=== PATIENT | male | born 1960 | race Caucasian/White ===

== ENCOUNTER → 2018-12-02 09:48 | Outpatient (CLI) | payer OTHER, SELFPAY ==
[2018-12-02 10:23] LABS: Add Manual Diff / Slide Review NO; Basophils Absolute Auto 0 /uL (0-100); Basophils Percent Auto 0.2 % (0-2); Eosinophils Absolute Auto 100 /uL (0-450); Eosinophils Percent Auto 0.4 % (2-4); Hemoglobin 14.5 g/dL (13.5-17.5); Lymphocytes Absolute Auto 1400 /uL (1100-4500); Lymphocytes Percent Auto 10.6 % (25-40); Mean Corpuscular HGB Conc 33.7 % (30-36); Mean Corpuscular Hemoglobin 32.8 PG (26-34); Mean Corpuscular Volume 97.4 fL (80-100); Monocytes Absolute Auto 1400 /uL (0-900); Neutrophils Absolute Auto 10100 /uL (1500-7000); Neutrophils Percent Auto 77.8 % (50-75); Platelet Count 234 X10^3/uL (150-400); Red Blood Cell Count 4.41 X10^6/uL (4.5-5.9); Red Cell Distribution Width 13.5 % (11.6-14.8); White Blood Cell Count 12.9 X10^3/uL (4.5-11.0)
[2018-12-02 11:08] LABS: Alanine Aminotransferase 30 IU/L (21-72); Albumin 4.1 g/dL (3.5-5.0); Albumin Globulin Ratio 1.1 (1.0-2.8); Alkaline Phosphatase 67 U/L (38-126); Aspartate Aminotransferase 30 IU/L (17-59); Bilirubin Total 1.2 mg/dL (0.2-1.3); Blood Urea Nitrogen 12 mg/dL (9-20); Carbon Dioxide 28 mmol/L (22-32); Chloride 102 mmol/L (98-107); Estimated Glomerular Filt Rate > 60.0 mL/min (>60); Globulin 3.7 g/dL (1.7-4.1); Glucose 125 mg/dL (70-100); HEMOLYSIS < 15 (0-50); Lipase 78 U/L (23-300); Potassium 4.1 mmol/L (3.4-5.1); Sodium 139 mmol/L (137-145); Total Protein 7.8 g/dL (6.3-8.2)
--- NOTE | 2018-12-02 12:21 | DI.CT.S_ITS ---
PROCEDURE: CT ABDOMEN PELVIS W CON INDICATIONS: abdominal pain TECHNIQUE: After the administration of oral and intravenous contrast, 5 mm thick sections acquired from the diaphragms to the symphysis. 5 mm thick coronal and sagittal reformats were performed. For radiation dose reduction, the following was used: automated exposure control, adjustment of mA and/or kV according to patient size. COMPARISON: None. FINDINGS: Image quality: Excellent. ABDOMEN: Lung bases: Lung bases are clear. Heart size is normal. Solid organs: Liver is normal in size and enhancement. Gallbladder is normal. Biliary system is non-dilated. Pancreas enhances normally. Spleen is normal in size and enhancement. No adrenal nodules. Kidneys are normal in size and enhancement, without hydronephrosis. Peritoneum and bowel: There are scattered colonic diverticula. There is thickening of sigmoid colon and pericolonic stranding consistent with acute diverticulitis. There is a 2.7 x 4.5 cm air-fluid level left lateral of the sigmoid colon, consistent with an abscess. Stomach, small bowel, and colon loops are normal in caliber. No free fluid or air. Nodes and vessels: No retroperitoneal or mesenteric adenopathy. Aorta and inferior vena cava are normal in caliber. Miscellaneous: No ventral hernias. PELVIS: Genitourinary: Bladder wall thickness is normal. Miscellaneous: No inguinal hernias or adenopathy. Bones: No suspicious bony lesions. No vertebral body compression fractures. IMPRESSION: 1. Acute diverticulitis of the sigmoid colon. There is a 2.7 x 4.5 cm air fluid collection adjacent to the sigmoid colon consistent with an abscess. The result was discussed with Sandy Melvin,PAC are to dictation. Dictated by: Yazmin Ayoub M.D. on 12/02/2018 at 13:16 Approved by: Sushil Cooney M.D. on 12/02/2018 at 14:19
== END ==
PROVIDERS: Visit Provider Physician Assistant
DX: R10.9 Unspecified abdominal pain (principal); R19.7 Diarrhea, unspecified
CPT/HCPCS: 36415; 74177; 80053; 83690; 85025; Q9967

== ENCOUNTER 2018-12-02 13:48 | Inpatient (IN) | payer OTHER, SELFPAY ==
[2018-12-02] VITALS (9 sets, daily range): BP systolic 116–165; BP diastolic 84–100; PULSE 60–81; RESP 12–18; TEMP 36.9–37.3; O2SAT 97–100; BMI 26.7
--- NOTE | 2018-12-02 13:58 | ED.ABDPAIN ---
HPI - Abdominal Pain <Erin Husain PA-C - Last Filed: 12/02/18 21:08> General Chief Complaint: Abdominal Pain Stated Complaint: abdominal pain Time Seen by Provider: 12/02/18 13:58 Source: patient Mode of arrival: ambulatory Limitations: no limitations History of Present Illness HPI narrative: This healthy 50-year-old male was called by walk-in clinic to return to ED reportedly due to perforated/abscessed diverticulum. He was seen there earlier today and lab work was done as well. He states the the pain throughout the lower abdomen started on Friday and he had some nausea and dry heaves as well. He states he did have some loose stools, thought this might be IBS as he has had similar symptoms in the past that responded to probiotics. He states that over the last few days, he has had increased pain though not acutely changed today. He states pain is worse at nighttime somewhat, but it is constant. Also worse with a full bladder. He has taken a Tylenol or Advil p.m. at night which has helped. He has had sweats, has not taken temperature. He has persistent nausea but has not had vomiting. He states he has had less appetite, did have dinner last night and has been drinking fluids. Decrease in bowel movement volume over the last few days. He denies hematuria or urinary symptoms. He denies chest pain, dyspnea, pain or swelling extremities or other new symptoms on systems review Related Data Home Medications Medication Instructions Recorded Confirmed No Known Home Medications 12/02/18 12/02/18 Allergies Allergy/AdvReac Type Severity Reaction Status Date / Time amoxicillin [From Augmentin] Allergy Severe GI Upset Verified 12/02/18 09:36 clavulanic acid Allergy Severe GI Upset Verified 12/02/18 09:36 [From Augmentin] gluten Allergy Unknown Verified 12/02/18 09:36 Review of Systems <Erin Husain PA-C - Last Filed: 12/02/18 21:08> Review of Systems ROS Unobtainable: All systems reviewed & are unremarkable except as noted in HPI and below PFSH <Erin Husain PA-C - Last Filed: 12/02/18 21:08> Medical History No chronic problems (Chronic) Surgical History History of arthroscopic knee surgery (Resolved) History of arthroscopic surgery of shoulder (Resolved) Social History Smoking Status: Never smoker Social History household members: significant other Smoking Status: Never smoker alcohol intake: current Exam <Erin Husain PA-C - Last Filed: 12/02/18 21:08> Narrative Exam Narrative: GENERAL APPEARANCE: Patient sitting comfortably, in no distress. HEENT: PERRL, EOMI, no scleral icterus, conjunctiva pink, normal oropharynx NECK: Supple, no masses LUNGS: Clear to auscultation bilaterally. HEART: Rate and rhythm regular, normal S1 and S2, no S3 or S4. ABDOMEN: Soft, nondistended, bowel sounds present x 4 quadrants, no masses palpable, no hepatosplenomegaly. Tender throughout the lower quadrants, more on the left side EXTREMITIES: No edema, no cyanosis DERMATOLOGIC: No jaundice or exanthem NEUROLOGIC: Alert and oriented with normal speech and coordination Initial Vital Signs Initial Vital Signs: Vital Signs Temperature 98.5 F 12/02/18 13:49 Pulse Rate 76 12/02/18 13:49 Respiratory Rate 18 12/02/18 13:49 Blood Pressure 165/100 H 12/02/18 13:49 <Sofi East DO - Last Filed: 12/03/18 08:16> Initial Vital Signs Initial Vital Signs: Vital Signs Temperature 98.5 F 12/02/18 13:49 Pulse Rate 76 12/02/18 13:49 Respiratory Rate 18 12/02/18 13:49 Blood Pressure 165/100 H 12/02/18 13:49 Course <CELESTINA Gregg Last Filed: 12/02/18 21:08> Additional Information: I spoke with Dr. Chilel, first front ventilator for surgery, who advised abx and admit to medicine with surgical consult as likely can be drained by interventional radiologist. Medicine felt that this admission was more appropriate for surgery. Dr. Chilel accepts patient for admission. He is feeling significantly improved in terms of pain and is stable at the time of transfer. Orders Ordered: ED Orders 12/03/18 06:15 Complete Blood Count AUTO DIFF DAILY Hydromorphone HCl (Dilaudid) 0.5 mg IV Q4H PRN PRN Reason: Pain, Severe (7-10) Last Admin: 12/02/18 23:05 Dose: 0.5 mg Levofloxacin (Levaquin) 750 mg in 150 mls @ 100 mls/hr IV Q24H FRANKI Metronidazole (Flagyl) 500 mg in 100 mls @ 100 mls/hr IV Q6H RFANKI Last Admin: 12/03/18 04:04 Dose: 100 mls/hr Infusion: 12/02/18 23:03 Dose: 0 mls/hr Admin: 12/02/18 21:31 Dose: 100 mls/hr Sodium Chloride (Normal Saline 0.9%) 1,000 mls @ 84 mls/hr IV CONT FRANKI Last Admin: 12/03/18 04:04 Dose: 84 mls/hr Infusion: 12/03/18 04:04 Dose: 84 mls/hr Admin: 12/02/18 16:28 Dose: 84 mls/hr Metoclopramide HCl (Reglan) 10 mg IV Q6HR PRN PRN Reason: Nausea And Vomiting Discontinued Medications Sodium Chloride (Normal Saline 0.9%) 1,000 mls @ 1,000 mls/hr IV BOLUS ONE Stop: 12/02/18 14:58 Last Infusion: 12/02/18 15:56 Dose: 0 mls/hr Admin: 12/02/18 14:34 Dose: 1,000 mls/hr Levofloxacin (Levaquin) 750 mg in 150 mls @ 100 mls/hr IV NOW ONE Stop: 12/02/18 15:56 Last Infusion: 12/02/18 16:25 Dose: 0 mls/hr Admin: 12/02/18 14:50 Dose: 100 mls/hr Sodium Chloride (Normal Saline 0.9%) 1,000 mls @ 1,000 mls/hr IV BOLUS ONE Stop: 12/02/18 15:26 Last Admin: 12/02/18 14:34 Dose: Not Given Metronidazole (Flagyl) 500 mg in 100 mls @ 100 mls/hr IV NOW ONE Stop: 12/02/18 15:32 Last Infusion: 12/02/18 15:56 Dose: 0 mls/hr Admin: 12/02/18 14:50 Dose: 100 mls/hr Ketorolac Tromethamine (Toradol) 30 mg IV NOW ONE Stop: 12/02/18 14:28 Last Admin: 12/02/18 14:33 Dose: 30 mg Ondansetron HCl (Zofran) 4 mg IV NOW ONE Stop: 12/02/18 14:28 Last Admin: 12/02/18 14:33 Dose: 4 mg Vital Signs - 8 hr 12/03/18 04:15 Temperature 98.3 F Pulse Rate 47 L Respiratory Rate 17 Blood Pressure 124/83 Pulse Oximetry 99 <Sofi East, DO - Last Filed: 12/03/18 08:16> Orders Ordered: ED Orders 12/03/18 06:15 Complete Blood Count AUTO DIFF DAILY Hydromorphone HCl (Dilaudid) 0.5 mg IV Q4H PRN PRN Reason: Pain, Severe (7-10) Last Admin: 12/02/18 23:05 Dose: 0.5 mg Levofloxacin (Levaquin) 750 mg in 150 mls @ 100 mls/hr IV Q24H FRANKI Metronidazole (Flagyl) 500 mg in 100 mls @ 100 mls/hr IV Q6H FRANKI Last Admin: 12/03/18 04:04 Dose: 100 mls/hr Infusion: 12/02/18 23:03 Dose: 0 mls/hr Admin: 12/02/18 21:31 Dose: 100 mls/hr Sodium Chloride (Normal Saline 0.9%) 1,000 mls @ 84 mls/hr IV CONT FRANKI Last Admin: 12/03/18 04:04 Dose: 84 mls/hr Infusion: 12/03/18 04:04 Dose: 84 mls/hr Admin: 12/02/18 16:28 Dose: 84 mls/hr Metoclopramide HCl (Reglan) 10 mg IV Q6HR PRN PRN Reason: Nausea And Vomiting Discontinued Medications Sodium Chloride (Normal Saline 0.9%) 1,000 mls @ 1,000 mls/hr IV BOLUS ONE Stop: 12/02/18 14:58 Last Infusion: 12/02/18 15:56 Dose: 0 mls/hr Admin: 12/02/18 14:34 Dose: 1,000 mls/hr Levofloxacin (Levaquin) 750 mg in 150 mls @ 100 mls/hr IV NOW ONE Stop: 12/02/18 15:56 Last Infusion: 12/02/18 16:25 Dose: 0 mls/hr Admin: 12/02/18 14:50 Dose: 100 mls/hr Sodium Chloride (Normal Saline 0.9%) 1,000 mls @ 1,000 mls/hr IV BOLUS ONE Stop: 12/02/18 15:26 Last Admin: 12/02/18 14:34 Dose: Not Given Metronidazole (Flagyl) 500 mg in 100 mls @ 100 mls/hr IV NOW ONE Stop: 12/02/18 15:32 Last Infusion: 12/02/18 15:56 Dose: 0 mls/hr Admin: 12/02/18 14:50 Dose: 100 mls/hr Ketorolac Tromethamine (Toradol) 30 mg IV NOW ONE Stop: 12/02/18 14:28 Last Admin: 12/02/18 14:33 Dose: 30 mg Ondansetron HCl (Zofran) 4 mg IV NOW ONE Stop: 12/02/18 14:28 Last Admin: 12/02/18 14:33 Dose: 4 mg Vital Signs - 8 hr 12/03/18 04:15 Temperature 98.3 F Pulse Rate 47 L Respiratory Rate 17 Blood Pressure 124/83 Pulse Oximetry 99 MDM - Abdominal Pain <Erin Husain PA-C - Last Filed: 12/02/18 21:08> Lab Data Attestation: I reviewed the patient's lab results. Result diagrams: 12/02/18 14:15 12/02/18 14:15 Lab Results 12/02/18 12/02/18 12/02/18 Range/Units 14:15 14:15 14:15 WBC 12.9 H (4.5-11.0) X10^3/uL RBC 4.45 L (4.5-5.9) X10^6/uL Hgb 14.4 (13.5-17.5) g/dL Hct 43.5 (41-53) % MCV 97.8 (80-100) fL MCH 32.4 (26-34) PG MCHC 33.2 (30-36) % RDW 13.8 (11.6-14.8) % Plt Count 233 (150-400) X10^3/uL Neut % (Auto) 77.6 H (50-75) % Lymph % (Auto) 11.3 L (25-40) % Greene % (Auto) 10.3 (3-14) % Eos % (Auto) 0.4 L (2-4) % Baso % (Auto) 0.4 (0-2) % Neut # (Auto) 60644 H (6611-9443) /uL Lymph # (Auto) 1500 (8548-0657) /uL Greene # (Auto) 1300 H (0-900) /uL Eos # (Auto) 100 (0-450) /uL Baso # (Auto) 100 (0-100) /uL Sodium 138 (137-145) mmol/L Potassium 3.7 (3.4-5.1) mmol/L Chloride 100 (98-107) mmol/L Carbon Dioxide 26 (22-32) mmol/L BUN 12 (9-20) mg/dL Creatinine 0.70 (0.66-1.25) mg/dL Estimated GFR > 60.0 (>60) mL/min BUN/Creatinine Ratio 17.1 (6-22) Glucose 112 H (70-100) mg/dL Lactate 1.0 (0.7-2.1) mmol/L Calcium 9.0 (8.4-10.2) mg/dL Total Bilirubin 1.4 H (0.2-1.3) mg/dL AST 36 (17-59) IU/L ALT 35 (21-72) IU/L Alkaline Phosphatase 70 (38-126) U/L Total Protein 8.6 H (6.3-8.2) g/dL Albumin 4.5 (3.5-5.0) g/dL Globulin 4.1 (1.7-4.1) g/dL Albumin/Globulin Ratio 1.1 (1.0-2.8) Lipase 88 (23-300) U/L Procalcitonin (<0.5) ng/mL Urine RBC (0-5/HPF) Urine WBC (0-5/HPF) Amorphous Sediment Urine Bacteria (None) Ur Culture Indicated? 12/02/18 12/02/18 Range/Units 14:18 14:25 WBC (4.5-11.0) X10^3/uL RBC (4.5-5.9) X10^6/uL Hgb (13.5-17.5) g/dL Hct (41-53) % MCV (80-100) fL MCH (26-34) PG MCHC (30-36) % RDW (11.6-14.8) % Plt Count (150-400) X10^3/uL Neut % (Auto) (50-75) % Lymph % (Auto) (25-40) % Greene % (Auto) (3-14) % Eos % (Auto) (2-4) % Baso % (Auto) (0-2) % Neut # (Auto) (3500-0093) /uL Lymph # (Auto) (6897-2312) /uL Greene # (Auto) (0-900) /uL Eos # (Auto) (0-450) /uL Baso # (Auto) (0-100) /uL Sodium (137-145) mmol/L Potassium (3.4-5.1) mmol/L Chloride (98-107) mmol/L Carbon Dioxide (22-32) mmol/L BUN (9-20) mg/dL Creatinine (0.66-1.25) mg/dL Estimated GFR (>60) mL/min BUN/Creatinine Ratio (6-22) Glucose (70-100) mg/dL Lactate (0.7-2.1) mmol/L Calcium (8.4-10.2) mg/dL Total Bilirubin (0.2-1.3) mg/dL AST (17-59) IU/L ALT (21-72) IU/L Alkaline Phosphatase (38-126) U/L Total Protein (6.3-8.2) g/dL Albumin (3.5-5.0) g/dL Globulin (1.7-4.1) g/dL Albumin/Globulin Ratio (1.0-2.8) Lipase (23-300) U/L Procalcitonin 0.07 (<0.5) ng/mL Urine RBC 1-5/hpf (0-5/HPF) Urine WBC None seen (0-5/HPF) Amorphous Sediment 1+ Urine Bacteria None seen (None) Ur Culture Indicated? Cult not indicated Point of care testing: Urine Dip Bedside Urine Glucose Negative Bedside Urine Bilirubin - Negative Bedside Urine Ketone - Negative Urine Specific [place] 1.005 Bedside Urine Occult Blood + Bedside Urine Protein +/- 15 Bedside Urine Urobilinogen +/- 1mg Bedside Urine Nitrite - Negative Bedside Urine Leukocytes - Negative Esterase Imaging Data CT scan - abdomen: Radiologist's impression: Chart Viewer Diagnostics DATE TYPE STATUS AUTHOR Hx 12/02/18 12:21 Sushil Cooney Christopher 58, M0 1960 REG ER, ED.LOC - Main ED: R10 86.183kg Abdominal Pain Search Chart No Data to Display GI Upset GI Upset No Data to Display Today 13:49 Denny Pabon 58 M 1960 [place] [address] CT Scan Report Signed Patient: Ni Pabon#: [id number] : 1960cct:[id number] Age/Sex: 58 / MDate of Service: 12/02/18 Loc: LAB Accession Number: [id number] Procedure: CT abdomen pelvis w con Ordering Provider: Sandy Melvin P.A-C PROCEDURE: CT ABDOMEN PELVIS W CON INDICATIONS: abdominal pain TECHNIQUE: After the administration of oral and intravenous contrast, 5 mm thick sections acquired from the diaphragms to the symphysis. 5 mm thick coronal and sagittal reformats were performed. For radiation dose reduction, the following was used: automated exposure control, adjustment of mA and/or kV according to patient size. COMPARISON: None. FINDINGS: Image quality: Excellent. ABDOMEN: Lung bases: Lung bases are clear. Heart size is normal. Solid organs: Liver is normal in size and enhancement. Gallbladder is normal. Biliary system is non-dilated. Pancreas enhances normally. Spleen is normal in size and enhancement. No adrenal nodules. Kidneys are normal in size and enhancement, without hydronephrosis. Peritoneum and bowel: There are scattered colonic diverticula. There is thickening of sigmoid colon and pericolonic stranding consistent with acute diverticulitis. There is a 2.7 x 4.5 cm air-fluid level left lateral of the sigmoid colon, consistent with an abscess. Stomach, small bowel, and colon loops are normal in caliber. No free fluid or air. Nodes and vessels: No retroperitoneal or mesenteric adenopathy. Aorta and inferior vena cava are normal in caliber. Miscellaneous: No ventral hernias. PELVIS: Genitourinary: Bladder wall thickness is normal. Miscellaneous: No inguinal hernias or adenopathy. Bones: No suspicious bony lesions. No vertebral body compression fractures. IMPRESSION: 1. Acute diverticulitis of the sigmoid colon. There is a 2.7 x 4.5 cm air fluid collection adjacent to the sigmoid colon consistent with an abscess. The result was discussed with Sandy Melvin,PAC are to dictation. Dictated by: Yazmin Ayoub M.D. on 12/02/2018 at 13:16 Approved by: Sushil Cooney M.D. on 12/02/2018 at 14:19 ECG Data Attestation: I personally reviewed and interpreted this ECG as follows: (Normal sinus rhythm with rate 82, normal axis) Prior ECG tracings: not available for review <Sofi East DO - Last Filed: 12/03/18 08:16> Lab Data Lab Results 12/02/18 12/02/18 12/02/18 Range/Units 14:15 14:15 14:15 WBC 12.9 H (4.5-11.0) X10^3/uL RBC 4.45 L (4.5-5.9) X10^6/uL Hgb 14.4 (13.5-17.5) g/dL Hct 43.5 (41-53) % MCV 97.8 (80-100) fL MCH 32.4 (26-34) PG MCHC 33.2 (30-36) % RDW 13.8 (11.6-14.8) % Plt Count 233 (150-400) X10^3/uL Neut % (Auto) 77.6 H (50-75) % Lymph % (Auto) 11.3 L (25-40) % Greene % (Auto) 10.3 (3-14) % Eos % (Auto) 0.4 L (2-4) % Baso % (Auto) 0.4 (0-2) % Neut # (Auto) 49933 H (1536-6809) /uL Lymph # (Auto) 1500 (1317-5228) /uL [place] # (Auto) 1300 H (0-900) /uL Eos # (Auto) 100 (0-450) /uL Baso # (Auto) 100 (0-100) /uL Sodium 138 (137-145) mmol/L Potassium 3.7 (3.4-5.1) mmol/L Chloride 100 (98-107) mmol/L Carbon Dioxide 26 (22-32) mmol/L BUN 12 (9-20) mg/dL Creatinine 0.70 (0.66-1.25) mg/dL Estimated GFR > 60.0 (>60) mL/min BUN/Creatinine Ratio 17.1 (6-22) Glucose 112 H (70-100) mg/dL Lactate 1.0 (0.7-2.1) mmol/L Calcium 9.0 (8.4-10.2) mg/dL Total Bilirubin 1.4 H (0.2-1.3) mg/dL AST 36 (17-59) IU/L ALT 35 (21-72) IU/L Alkaline Phosphatase 70 (38-126) U/L Total Protein 8.6 H (6.3-8.2) g/dL Albumin 4.5 (3.5-5.0) g/dL Globulin 4.1 (1.7-4.1) g/dL Albumin/Globulin Ratio 1.1 (1.0-2.8) Lipase 88 (23-300) U/L Procalcitonin (<0.5) ng/mL Urine RBC (0-5/HPF) Urine WBC (0-5/HPF) Amorphous Sediment Urine Bacteria (None) Ur Culture Indicated? 12/02/18 12/02/18 Range/Units 14:18 14:25 WBC (4.5-11.0) X10^3/uL RBC (4.5-5.9) X10^6/uL Hgb (13.5-17.5) g/dL Hct (41-53) % MCV (80-100) fL MCH (26-34) PG MCHC (30-36) % RDW (11.6-14.8) % Plt Count (150-400) X10^3/uL Neut % (Auto) (50-75) % Lymph % (Auto) (25-40) % [place] % (Auto) (3-14) % Eos % (Auto) (2-4) % Baso % (Auto) (0-2) % Neut # (Auto) (3992-3116) /uL Lymph # (Auto) (7551-0906) /uL Greene # (Auto) (0-900) /uL Eos # (Auto) (0-450) /uL Baso # (Auto) (0-100) /uL Sodium (137-145) mmol/L Potassium (3.4-5.1) mmol/L Chloride (98-107) mmol/L Carbon Dioxide (22-32) mmol/L BUN (9-20) mg/dL Creatinine (0.66-1.25) mg/dL Estimated GFR (>60) mL/min BUN/Creatinine Ratio (6-22) Glucose (70-100) mg/dL Lactate (0.7-2.1) mmol/L Calcium (8.4-10.2) mg/dL Total Bilirubin (0.2-1.3) mg/dL AST (17-59) IU/L ALT (21-72) IU/L Alkaline Phosphatase (38-126) U/L Total Protein (6.3-8.2) g/dL Albumin (3.5-5.0) g/dL Globulin (1.7-4.1) g/dL Albumin/Globulin Ratio (1.0-2.8) Lipase (23-300) U/L Procalcitonin 0.07 (<0.5) ng/mL Urine RBC 1-5/hpf (0-5/HPF) Urine WBC None seen (0-5/HPF) Amorphous Sediment 1+ Urine Bacteria None seen (None) Ur Culture Indicated? Cult not indicated Point of care testing: Urine Dip Bedside Urine Glucose Negative Bedside Urine Bilirubin - Negative Bedside Urine Ketone - Negative Urine Specific [place] 1.005 Bedside Urine Occult Blood + Bedside Urine Protein +/- 15 Bedside Urine Urobilinogen +/- 1mg Bedside Urine Nitrite - Negative Bedside Urine Leukocytes - Negative Esterase Discharge Plan Departure Patient Disposition: Admitted As Inpatient Clinical Impression: Diverticulitis of intestine with abscess Qualifiers: Diverticulitis site: large intestine Diverticulitis bleeding: without bleeding Qualified Code(s): K57.20 - Diverticulitis of large intestine with perforation and abscess without bleeding Discharge Date/Time: 12/02/18 16:26 Interventions: ED Discharge Assessment Last Done: 12/02/18 16:25 Admit Date/Time: 12/02/18 15:35 Admit Provider: Derik Chilel <Sofi East DO - Last Filed: 12/03/18 08:16> Cosign ED Attending Cosignature Attestation: I was immediately available in the department for consultation. Documentation has been reviewed. I agree with assessment and plan.
--- NOTE | 2018-12-02 14:20 | ED_ITS ---
HPI - Abdominal Pain <Erin Husain PA-C - Last Filed: 12/02/18 21:08> General Chief Complaint: Abdominal Pain Stated Complaint: abdominal pain Time Seen by Provider: 12/02/18 13:58 Source: patient Mode of arrival: ambulatory Limitations: no limitations History of Present Illness HPI narrative: This healthy 50-year-old male was called by walk-in clinic to return to ED reportedly due to perforated/abscessed diverticulum. He was seen there earlier today and lab work was done as well. He states the the pain throughout the lower abdomen started on Friday and he had some nausea and dry heaves as well. He states he did have some loose stools, thought this might be IBS as he has had similar symptoms in the past that responded to probiotics. He states that over the last few days, he has had increased pain though not acutely changed today. He states pain is worse at nighttime somewhat, but it is constant. Also worse with a full bladder. He has taken a Tylenol or Advil p.m. at night which has helped. He has had sweats, has not taken temperature. He has persistent nausea but has not had vomiting. He states he has had less appetite, did have dinner last night and has been drinking fluids. Decrease in bowel movement volume over the last few days. He denies hematuria or urinary symptoms. He denies chest pain, dyspnea, pain or swelling extremities or other new symptoms on systems review Related Data Home Medications Medication Instructions Recorded Confirmed No Known Home Medications 12/02/18 12/02/18 Allergies Allergy/AdvReac Type Severity Reaction Status Date / Time amoxicillin [From Augmentin] Allergy Severe GI Upset Verified 12/02/18 09:36 clavulanic acid Allergy Severe GI Upset Verified 12/02/18 09:36 [From Augmentin] gluten Allergy Unknown Verified 12/02/18 09:36 Review of Systems <Erin Husain PA-C - Last Filed: 12/02/18 21:08> Review of Systems ROS Unobtainable: All systems reviewed & are unremarkable except as noted in HPI and below PFSH <Erin Husain PA-C - Last Filed: 12/02/18 21:08> Medical History No chronic problems (Chronic) Surgical History History of arthroscopic knee surgery (Resolved) History of arthroscopic surgery of shoulder (Resolved) Social History Smoking Status: Never smoker Social History household members: significant other Smoking Status: Never smoker alcohol intake: current Exam <Erin Husain PA-C - Last Filed: 12/02/18 21:08> Narrative Exam Narrative: GENERAL APPEARANCE: Patient sitting comfortably, in no distress. HEENT: PERRL, EOMI, no scleral icterus, conjunctiva pink, normal oropharynx NECK: Supple, no masses LUNGS: Clear to auscultation bilaterally. HEART: Rate and rhythm regular, normal S1 and S2, no S3 or S4. ABDOMEN: Soft, nondistended, bowel sounds present x 4 quadrants, no masses palpable, no hepatosplenomegaly. Tender throughout the lower quadrants, more on the left side EXTREMITIES: No edema, no cyanosis DERMATOLOGIC: No jaundice or exanthem NEUROLOGIC: Alert and oriented with normal speech and coordination Initial Vital Signs Initial Vital Signs: Vital Signs Temperature 98.5 F 12/02/18 13:49 Pulse Rate 76 12/02/18 13:49 Respiratory Rate 18 12/02/18 13:49 Blood Pressure 165/100 H 12/02/18 13:49 <Sofi East DO - Last Filed: 12/03/18 08:16> Initial Vital Signs Initial Vital Signs: Vital Signs Temperature 98.5 F 12/02/18 13:49 Pulse Rate 76 12/02/18 13:49 Respiratory Rate 18 12/02/18 13:49 Blood Pressure 165/100 H 12/02/18 13:49 Course <CELESTINA Gregg Last Filed: 12/02/18 21:08> Additional Information: I spoke with Dr. Chilel, application counselor for surgery, who advised abx and admit to medicine with surgical consult as likely can be drained by interventional radiologist. Medicine felt that this admission was more appropriate for surgery. Dr. Chilel accepts patient for admission. He is feeling significantly improved in terms of pain and is stable at the time of transfer. Orders Ordered: ED Orders 12/03/18 06:15 Complete Blood Count AUTO DIFF DAILY Hydromorphone HCl (Dilaudid) 0.5 mg IV Q4H PRN PRN Reason: Pain, Severe (7-10) Last Admin: 12/02/18 23:05 Dose: 0.5 mg Levofloxacin (Levaquin) 750 mg in 150 mls @ 100 mls/hr IV Q24H FRANKI Metronidazole (Flagyl) 500 mg in 100 mls @ 100 mls/hr IV Q6H FRANKI Last Admin: 12/03/18 04:04 Dose: 100 mls/hr Infusion: 12/02/18 23:03 Dose: 0 mls/hr Admin: 12/02/18 21:31 Dose: 100 mls/hr Sodium Chloride (Normal Saline 0.9%) 1,000 mls @ 84 mls/hr IV CONT FRANKI Last Admin: 12/03/18 04:04 Dose: 84 mls/hr Infusion: 12/03/18 04:04 Dose: 84 mls/hr Admin: 12/02/18 16:28 Dose: 84 mls/hr Metoclopramide HCl (Reglan) 10 mg IV Q6HR PRN PRN Reason: Nausea And Vomiting Discontinued Medications Sodium Chloride (Normal Saline 0.9%) 1,000 mls @ 1,000 mls/hr IV BOLUS ONE Stop: 12/02/18 14:58 Last Infusion: 12/02/18 15:56 Dose: 0 mls/hr Admin: 12/02/18 14:34 Dose: 1,000 mls/hr Levofloxacin (Levaquin) 750 mg in 150 mls @ 100 mls/hr IV NOW ONE Stop: 12/02/18 15:56 Last Infusion: 12/02/18 16:25 Dose: 0 mls/hr Admin: 12/02/18 14:50 Dose: 100 mls/hr Sodium Chloride (Normal Saline 0.9%) 1,000 mls @ 1,000 mls/hr IV BOLUS ONE Stop: 12/02/18 15:26 Last Admin: 12/02/18 14:34 Dose: Not Given Metronidazole (Flagyl) 500 mg in 100 mls @ 100 mls/hr IV NOW ONE Stop: 12/02/18 15:32 Last Infusion: 12/02/18 15:56 Dose: 0 mls/hr Admin: 12/02/18 14:50 Dose: 100 mls/hr Ketorolac Tromethamine (Toradol) 30 mg IV NOW ONE Stop: 12/02/18 14:28 Last Admin: 12/02/18 14:33 Dose: 30 mg Ondansetron HCl (Zofran) 4 mg IV NOW ONE Stop: 12/02/18 14:28 Last Admin: 12/02/18 14:33 Dose: 4 mg Vital Signs - 8 hr 12/03/18 04:15 Temperature 98.3 F Pulse Rate 47 L Respiratory Rate 17 Blood Pressure 124/83 Pulse Oximetry 99 <Sofi East, DO - Last Filed: 12/03/18 08:16> Orders Ordered: ED Orders 12/03/18 06:15 Complete Blood Count AUTO DIFF DAILY Hydromorphone HCl (Dilaudid) 0.5 mg IV Q4H PRN PRN Reason: Pain, Severe (7-10) Last Admin: 12/02/18 23:05 Dose: 0.5 mg Levofloxacin (Levaquin) 750 mg in 150 mls @ 100 mls/hr IV Q24H FRANKI Metronidazole (Flagyl) 500 mg in 100 mls @ 100 mls/hr IV Q6H FRANKI Last Admin: 12/03/18 04:04 Dose: 100 mls/hr Infusion: 12/02/18 23:03 Dose: 0 mls/hr Admin: 12/02/18 21:31 Dose: 100 mls/hr Sodium Chloride (Normal Saline 0.9%) 1,000 mls @ 84 mls/hr IV CONT FRANKI Last Admin: 12/03/18 04:04 Dose: 84 mls/hr Infusion: 12/03/18 04:04 Dose: 84 mls/hr Admin: 12/02/18 16:28 Dose: 84 mls/hr Metoclopramide HCl (Reglan) 10 mg IV Q6HR PRN PRN Reason: Nausea And Vomiting Discontinued Medications Sodium Chloride (Normal Saline 0.9%) 1,000 mls @ 1,000 mls/hr IV BOLUS ONE Stop: 12/02/18 14:58 Last Infusion: 12/02/18 15:56 Dose: 0 mls/hr Admin: 12/02/18 14:34 Dose: 1,000 mls/hr Levofloxacin (Levaquin) 750 mg in 150 mls @ 100 mls/hr IV NOW ONE Stop: 12/02/18 15:56 Last Infusion: 12/02/18 16:25 Dose: 0 mls/hr Admin: 12/02/18 14:50 Dose: 100 mls/hr Sodium Chloride (Normal Saline 0.9%) 1,000 mls @ 1,000 mls/hr IV BOLUS ONE Stop: 12/02/18 15:26 Last Admin: 12/02/18 14:34 Dose: Not Given Metronidazole (Flagyl) 500 mg in 100 mls @ 100 mls/hr IV NOW ONE Stop: 12/02/18 15:32 Last Infusion: 12/02/18 15:56 Dose: 0 mls/hr Admin: 12/02/18 14:50 Dose: 100 mls/hr Ketorolac Tromethamine (Toradol) 30 mg IV NOW ONE Stop: 12/02/18 14:28 Last Admin: 12/02/18 14:33 Dose: 30 mg Ondansetron HCl (Zofran) 4 mg IV NOW ONE Stop: 12/02/18 14:28 Last Admin: 12/02/18 14:33 Dose: 4 mg Vital Signs - 8 hr 12/03/18 04:15 Temperature 98.3 F Pulse Rate 47 L Respiratory Rate 17 Blood Pressure 124/83 Pulse Oximetry 99 MDM - Abdominal Pain <Erin Husain PA-C - Last Filed: 12/02/18 21:08> Lab Data Attestation: I reviewed the patient's lab results. Result diagrams: 12/02/18 14:15 12/02/18 14:15 Lab Results 12/02/18 12/02/18 12/02/18 Range/Units 14:15 14:15 14:15 WBC 12.9 H (4.5-11.0) X10^3/uL RBC 4.45 L (4.5-5.9) X10^6/uL Hgb 14.4 (13.5-17.5) g/dL Hct 43.5 (41-53) % MCV 97.8 (80-100) fL MCH 32.4 (26-34) PG MCHC 33.2 (30-36) % RDW 13.8 (11.6-14.8) % Plt Count 233 (150-400) X10^3/uL Neut % (Auto) 77.6 H (50-75) % Lymph % (Auto) 11.3 L (25-40) % [place] % (Auto) 10.3 (3-14) % Eos % (Auto) 0.4 L (2-4) % Baso % (Auto) 0.4 (0-2) % Neut # (Auto) 06696 H (4925-2482) /uL Lymph # (Auto) 1500 (9562-5437) /uL [place] # (Auto) 1300 H (0-900) /uL Eos # (Auto) 100 (0-450) /uL Baso # (Auto) 100 (0-100) /uL Sodium 138 (137-145) mmol/L Potassium 3.7 (3.4-5.1) mmol/L Chloride 100 (98-107) mmol/L Carbon Dioxide 26 (22-32) mmol/L BUN 12 (9-20) mg/dL Creatinine 0.70 (0.66-1.25) mg/dL Estimated GFR > 60.0 (>60) mL/min BUN/Creatinine Ratio 17.1 (6-22) Glucose 112 H (70-100) mg/dL Lactate 1.0 (0.7-2.1) mmol/L Calcium 9.0 (8.4-10.2) mg/dL Total Bilirubin 1.4 H (0.2-1.3) mg/dL AST 36 (17-59) IU/L ALT 35 (21-72) IU/L Alkaline Phosphatase 70 (38-126) U/L Total Protein 8.6 H (6.3-8.2) g/dL Albumin 4.5 (3.5-5.0) g/dL Globulin 4.1 (1.7-4.1) g/dL Albumin/Globulin Ratio 1.1 (1.0-2.8) Lipase 88 (23-300) U/L Procalcitonin (<0.5) ng/mL Urine RBC (0-5/HPF) Urine WBC (0-5/HPF) Amorphous Sediment Urine Bacteria (None) Ur Culture Indicated? 12/02/18 12/02/18 Range/Units 14:18 14:25 WBC (4.5-11.0) X10^3/uL RBC (4.5-5.9) X10^6/uL Hgb (13.5-17.5) g/dL Hct (41-53) % MCV (80-100) fL MCH (26-34) PG MCHC (30-36) % RDW (11.6-14.8) % Plt Count (150-400) X10^3/uL Neut % (Auto) (50-75) % Lymph % (Auto) (25-40) % [place] % (Auto) (3-14) % Eos % (Auto) (2-4) % Baso % (Auto) (0-2) % Neut # (Auto) (5970-8744) /uL Lymph # (Auto) (5744-9305) /uL [place] # (Auto) (0-900) /uL Eos # (Auto) (0-450) /uL Baso # (Auto) (0-100) /uL Sodium (137-145) mmol/L Potassium (3.4-5.1) mmol/L Chloride (98-107) mmol/L Carbon Dioxide (22-32) mmol/L BUN (9-20) mg/dL Creatinine (0.66-1.25) mg/dL Estimated GFR (>60) mL/min BUN/Creatinine Ratio (6-22) Glucose (70-100) mg/dL Lactate (0.7-2.1) mmol/L Calcium (8.4-10.2) mg/dL Total Bilirubin (0.2-1.3) mg/dL AST (17-59) IU/L ALT (21-72) IU/L Alkaline Phosphatase (38-126) U/L Total Protein (6.3-8.2) g/dL Albumin (3.5-5.0) g/dL Globulin (1.7-4.1) g/dL Albumin/Globulin Ratio (1.0-2.8) Lipase (23-300) U/L Procalcitonin 0.07 (<0.5) ng/mL Urine RBC 1-5/hpf (0-5/HPF) Urine WBC None seen (0-5/HPF) Amorphous Sediment 1+ Urine Bacteria None seen (None) Ur Culture Indicated? Cult not indicated Point of care testing: Urine Dip Bedside Urine Glucose Negative Bedside Urine Bilirubin - Negative Bedside Urine Ketone - Negative Urine Specific [place] 1.005 Bedside Urine Occult Blood + Bedside Urine Protein +/- 15 Bedside Urine Urobilinogen +/- 1mg Bedside Urine Nitrite - Negative Bedside Urine Leukocytes - Negative Esterase Imaging Data CT scan - abdomen: Radiologist's impression: Chart Viewer Diagnostics DATE TYPE STATUS AUTHOR Hx 12/02/18 12:21 Sushil Cooney Christopher 58, M0 1960 REG ER, ED.LOC - Main ED: R10 86.183kg Abdominal Pain Search Chart No Data to Display GI Upset GI Upset No Data to Display Today 13:49 Denny Pabon 58 M 1960 [place] [address] CT Scan Report Signed Patient: Ni Pabon#: [id number] : [id number]:[id number] Age/Sex: 58 / MDate of Service: 12/02/18 Loc: LAB Accession Number: [id number] Procedure: CT abdomen pelvis w con Ordering Provider: Sandy Melvin P.A-C PROCEDURE: CT ABDOMEN PELVIS W CON INDICATIONS: abdominal pain TECHNIQUE: After the administration of oral and intravenous contrast, 5 mm thick sections acquired from the diaphragms to the symphysis. 5 mm thick coronal and sagittal reformats were performed. For radiation dose reduction, the following was used: automated exposure control, adjustment of mA and/or kV according to patient size. COMPARISON: None. FINDINGS: Image quality: Excellent. ABDOMEN: Lung bases: Lung bases are clear. Heart size is normal. Solid organs: Liver is normal in size and enhancement. Gallbladder is normal. Biliary system is non-dilated. Pancreas enhances normally. Spleen is normal in size and enhancement. No adrenal nodules. Kidneys are normal in size and enhancement, without hydronephrosis. Peritoneum and bowel: There are scattered colonic diverticula. There is t hickening of sigmoid colon and pericolonic stranding consistent with acute diverticulitis. There is a 2.7 x 4.5 cm air-fluid level left lateral of the sigmoid colon, consistent with an abscess. Stomach, small bowel, and colon loops are normal in caliber. No free fluid or air. Nodes and vessels: No retroperitoneal or mesenteric adenopathy. Aorta and inferior vena cava are normal in caliber. Miscellaneous: No ventral hernias. PELVIS: Genitourinary: Bladder wall thickness is normal. Miscellaneous: No inguinal hernias or adenopathy. Bones: No suspicious bony lesions. No vertebral body compression fractures. IMPRESSION: 1. Acute diverticulitis of the sigmoid colon. There is a 2.7 x 4.5 cm air fluid collection adjacent to the sigmoid colon consistent with an abscess. The result was discussed with Sandy Melvin,PAC are to dictation. Dictated by: Yazmin Ayoub M.D. on 12/02/2018 at 13:16 Approved by: Sushil Cooney M.D. on 12/02/2018 at 14:19 ECG Data Attestation: I personally reviewed and interpreted this ECG as follows: (Normal sinus rhythm with rate 82, normal axis) Prior ECG tracings: not available for review <Sofi East DO - Last Filed: 12/03/18 08:16> Lab Data Lab Results 12/02/18 12/02/18 12/02/18 Range/Units 14:15 14:15 14:15 WBC 12.9 H (4.5-11.0) X10^3/uL RBC 4.45 L (4.5-5.9) X10^6/uL Hgb 14.4 (13.5-17.5) g/dL Hct 43.5 (41-53) % MCV 97.8 (80-100) fL MCH 32.4 (26-34) PG MCHC 33.2 (30-36) % RDW 13.8 (11.6-14.8) % Plt Count 233 (150-400) X10^3/uL Neut % (Auto) 77.6 H (50-75) % Lymph % (Auto) 11.3 L (25-40) % [place] % (Auto) 10.3 (3-14) % Eos % (Auto) 0.4 L (2-4) % Baso % (Auto) 0.4 (0-2) % Neut # (Auto) 15370 H (9262-5899) /uL Lymph # (Auto) 1500 (4596-7657) /uL [place] # (Auto) 1300 H (0-900) /uL Eos # (Auto) 100 (0-450) /uL Baso # (Auto) 100 (0-100) /uL Sodium 138 (137-145) mmol/L Potassium 3.7 (3.4-5.1) mmol/L Chloride 100 (98-107) mmol/L Carbon Dioxide 26 (22-32) mmol/L BUN 12 (9-20) mg/dL Creatinine 0.70 (0.66-1.25) mg/dL Estimated GFR > 60.0 (>60) mL/min BUN/Creatinine Ratio 17.1 (6-22) Glucose 112 H (70-100) mg/dL Lactate 1.0 (0.7-2.1) mmol/L Calcium 9.0 (8.4-10.2) mg/dL Total Bilirubin 1.4 H (0.2-1.3) mg/dL AST 36 (17-59) IU/L ALT 35 (21-72) IU/L Alkaline Phosphatase 70 (38-126) U/L Total Protein 8.6 H (6.3-8.2) g/dL Albumin 4.5 (3.5-5.0) g/dL Globulin 4.1 (1.7-4.1) g/dL Albumin/Globulin Ratio 1.1 (1.0-2.8) Lipase 88 (23-300) U/L Procalcitonin (<0.5) ng/mL Urine RBC (0-5/HPF) Urine WBC (0-5/HPF) Amorphous Sediment Urine Bacteria (None) Ur Culture Indicated? 12/02/18 12/02/18 Range/Units 14:18 14:25 WBC (4.5-11.0) X10^3/uL RBC (4.5-5.9) X10^6/uL Hgb (13.5-17.5) g/dL Hct (41-53) % MCV (80-100) fL MCH (26-34) PG MCHC (30-36) % RDW (11.6-14.8) % Plt Count (150-400) X10^3/uL Neut % (Auto) (50-75) % Lymph % (Auto) (25-40) % [place] % (Auto) (3-14) % Eos % (Auto) (2-4) % Baso % (Auto) (0-2) % Neut # (Auto) (6971-4783) /uL Lymph # (Auto) (3420-2448) /uL [place] # (Auto) (0-900) /uL Eos # (Auto) (0-450) /uL Baso # (Auto) (0-100) /uL Sodium (137-145) mmol/L Potassium (3.4-5.1) mmol/L Chloride (98-107) mmol/L Carbon Dioxide (22-32) mmol/L BUN (9-20) mg/dL Creatinine (0.66-1.25) mg/dL Estimated GFR (>60) mL/min BUN/Creatinine Ratio (6-22) Glucose (70-100) mg/dL Lactate (0.7-2.1) mmol/L Calcium (8.4-10.2) mg/dL Total Bilirubin (0.2-1.3) mg/dL AST (17-59) IU/L ALT (21-72) IU/L Alkaline Phosphatase (38-126) U/L Total Protein (6.3-8.2) g/dL Albumin (3.5-5.0) g/dL Globulin (1.7-4.1) g/dL Albumin/Globulin Ratio (1.0-2.8) Lipase (23-300) U/L Procalcitonin 0.07 (<0.5) ng/mL Urine RBC 1-5/hpf (0-5/HPF) Urine WBC None seen (0-5/HPF) Amorphous Sediment 1+ Urine Bacteria None seen (None) Ur Culture Indicated? Cult not indicated Point of care testing: Urine Dip Bedside Urine Glucose Negative Bedside Urine Bilirubin - Negative Bedside Urine Ketone - Negative Urine Specific [place] 1.005 Bedside Urine Occult Blood + Bedside Urine Protein +/- 15 Bedside Urine Urobilinogen +/- 1mg Bedside Urine Nitrite - Negative Bedside Urine Leukocytes - Negative Esterase Discharge Plan Departure Patient Disposition: Admitted As Inpatient Clinical Impression: Diverticulitis of intestine with abscess Qualifiers: Diverticulitis site: large intestine Diverticulitis bleeding: without bleeding Qualified Code(s): K57.20 - Diverticulitis of large intestine with perforation and abscess without bleeding Discharge Date/Time: 12/02/18 16:26 Interventions: ED Discharge Assessment Last Done: 12/02/18 16:25 Admit Date/Time: 12/02/18 15:35 Admit Provider: Derik Chilel <Sofi East DO - Last Filed: 12/03/18 08:16> Cosign ED Attending Cosignature Attestation: I was immediately available in the depar tment for consultation. Documentation has been reviewed. I agree with assessment and plan.
[2018-12-02 14:23] LABS: Add Manual Diff / Slide Review NO; Basophils Absolute Auto 100 /uL (0-100); Basophils Percent Auto 0.4 % (0-2); Eosinophils Absolute Auto 100 /uL (0-450); Eosinophils Percent Auto 0.4 % (2-4); Hematocrit 43.5 % (41-53); Hemoglobin 14.4 g/dL (13.5-17.5); Lymphocytes Absolute Auto 1500 /uL (1100-4500); Lymphocytes Percent Auto 11.3 % (25-40); Mean Corpuscular HGB Conc 33.2 % (30-36); Mean Corpuscular Hemoglobin 32.4 PG (26-34); Mean Corpuscular Volume 97.8 fL (80-100); Monocytes Absolute Auto 1300 /uL (0-900); Monocytes Percent Auto 10.3 % (3-14); Neutrophils Absolute Auto 10000 /uL (1500-7000); Neutrophils Percent Auto 77.6 % (50-75); Platelet Count 233 X10^3/uL (150-400); Red Blood Cell Count 4.45 X10^6/uL (4.5-5.9); Red Cell Distribution Width 13.8 % (11.6-14.8); White Blood Cell Count 12.9 X10^3/uL (4.5-11.0)
[2018-12-02] MEDS: KETOROLAC 60 MG/2 ML VIAL 30 MG IV (14:33)
[2018-12-02] MEDS: ONDANSETRON 4 MG/2 ML INJ IV (14:33)
[2018-12-02] MEDS: SODIUM CHLORIDE 0.9% 1,000 ML 1000 ML IV (14:34)
[2018-12-02 14:37] LABS: Alanine Aminotransferase 35 IU/L (21-72); Albumin 4.5 g/dL (3.5-5.0); Albumin Globulin Ratio 1.1 (1.0-2.8); Alkaline Phosphatase 70 U/L (38-126); Aspartate Aminotransferase 36 IU/L (17-59); BUN Creatinine Ratio 17.1 (6-22); Bilirubin Total 1.4 mg/dL (0.2-1.3); Blood Urea Nitrogen 12 mg/dL (9-20); Carbon Dioxide 26 mmol/L (22-32); Chloride 100 mmol/L (98-107); Estimated Glomerular Filt Rate > 60.0 mL/min (>60); Globulin 4.1 g/dL (1.7-4.1); Glucose 112 mg/dL (70-100); HEMOLYSIS 30 (0-50); Lipase 88 U/L (23-300); Potassium 3.7 mmol/L (3.4-5.1); Sodium 138 mmol/L (137-145); Total Protein 8.6 g/dL (6.3-8.2)
[2018-12-02] MEDS: levoFLOXacin 750 MG/150 ML PIGGYBACK 100 MG IV (14:50)
[2018-12-02] MEDS: metroNIDAZOLE 500 MG/100 ML PIGGYBACK 100 MG IV ×2 (14:50→21:31)
[2018-12-02 15:43] LABS: Bacteria Urine None Seen; WBC Urine None Seen (0-5/HPF)
[2018-12-02 15:55] LABS: Amorphous Sediment Urine 1+; Culture Indicated Urine Cult Not Indicated; RBC Urine 1-5/HPF (0-5/HPF)
--- NOTE | 2018-12-02 15:57 | P.HP_ITS ---
History of Present Illness Date Patient Seen: 12/02/18 Time Patient Seen: 15:54 Chief complaint: abdominal pain Narrative: 58-year-old white male who has had lower abdominal pain for about 4 days it has gradually increasing in intensity comes emergency room with a CT scan of the abdomen and pelvis showing sigmoid diverticulitis with a abscess over toward the lateral pelvic wall. The abscess is well contained. I have reviewed the films with radiologist who says he cannot safely do percutaneous drainage. patient is being admitted for IV antibiotic therapy and possible laparoscopic drainage Patient History Medical History No chronic problems (Chronic) Surgical History History of arthroscopic knee surgery (Resolved) History of arthroscopic surgery of shoulder (Resolved) Social History Smoking Status: Never smoker Family & Social History Safety & Behavioral: Feels Safe in Current Yes Environment Been Physically Hurt or No Threatened By a Person Tobacco & Substance use: Smoking Status Never smoker alcohol intake frequency 0-2 drinks per day Substance Use Type does not use Meds Home Medications Medication Instructions Recorded Confirmed Type No Known Home Medications 12/02/18 12/02/18 History Allergies Allergy/AdvReac Type Severity Reaction Status Date / Time amoxicillin [From Augmentin] Allergy Severe GI Upset Verified 12/02/18 09:36 clavulanic acid Allergy Severe GI Upset Verified 12/02/18 09:36 [From Augmentin] gluten Allergy Unknown Verified 12/02/18 09:36 Review of Systems Review of Systems All systems reviewed & are unremarkable except as noted in HPI and below Exam Vital Signs (past 8 hours): - 12/02/18 13:49 12/02/18 14:40 12/02/18 14:43 Temperature 98.5 F 99.2 F Pulse Rate 76 81 77 Respiratory Rate 18 17 12 Blood Pressure 165/100 H Blood Pressure [Left Arm] 136/88 Blood Pressure [Right Arm] 136/88 Pulse Oximetry 98 97 Oxygen Delivery Method Room Air Narrative Exam Narrative: Patient is resting fairly comfortably in his bed in the in emergency room. Ears nose and throat are normal. Lungs are clear with no rales or wheezes Heart regular rhythm no murmur Abdomen is nondistended with localized tenderness in the left lower quadrant. there is no significant guarding. There is no other quadrant tenderness. the patient does not have generalized peritonitis. Objective Labs Result Diagrams: 12/02/18 14:15 12/02/18 14:15 Labs: Laboratory Results - last 24 hr 12/02/18 12/02/18 12/02/18 14:15 14:15 14:15 WBC 12.9 H RBC 4.45 L Hgb 14.4 Hct 43.5 MCV 97.8 MCH 32.4 MCHC 33.2 RDW 13.8 Plt Count 233 Neut % (Auto) 77.6 H Lymph % (Auto) 11.3 L [place] % (Auto) 10.3 Eos % (Auto) 0.4 L Baso % (Auto) 0.4 Neut # (Auto) 85737 H Lymph # (Auto) 1500 [place] # (Auto) 1300 H Eos # (Auto) 100 Baso # (Auto) 100 Sodium 138 Potassium 3.7 Chloride 100 Carbon Dioxide 26 BUN 12 Creatinine 0.70 Estimated GFR > 60.0 BUN/Creatinine Ratio 17.1 Glucose 112 H Lactate 1.0 Calcium 9.0 Total Bilirubin 1.4 H AST 36 ALT 35 Alkaline Phosphatase 70 Total Protein 8.6 H Albumin 4.5 Globulin 4.1 Albumin/Globulin Ratio 1.1 Lipase 88 Assessment & Plan Assessment & Plan narrative: I have thoroughly reviewed the CT scan of the pelvis with the radiologist and there is a well-contained abscess lateral to the sigmoid colon. The radiologist here does not feel that he can safely drain the abscess percutaneously. Patient is being treated with IV antibiotic therapy. We may end up doing a laparoscopic drainage of this if necessary. At the moment the patient has a slow heart rate in the 80s he is not at all toxic and we may be able to contain this with strong antibiotic therapy in this case for using Levaquin and Flagyl.
[2018-12-02 16:19] LABS: Procalcitonin 0.07 ng/mL (<0.5)
[2018-12-02] MEDS: SODIUM CHLORIDE 0.9% 1,000 ML 84 ML IV (16:28)
[2018-12-02] MEDS: HYDROMORPHONE 0.5 MG INJ IV (23:05)
[2018-12-03] VITALS (8 sets, daily range): BP systolic 118–143; BP diastolic 69–85; PULSE 47–75; RESP 14–18; TEMP 36.4–37.1; O2SAT 98–100
[2018-12-03] MEDS: SODIUM CHLORIDE 0.9% 1,000 ML 84 ML IV ×2 (04:04→22:08)
[2018-12-03] MEDS: metroNIDAZOLE 500 MG/100 ML PIGGYBACK 100 MG IV ×3 (04:04→22:04)
[2018-12-03 08:42] LABS: Add Manual Diff / Slide Review NO; Basophils Absolute Auto 0 /uL (0-100); Basophils Percent Auto 0.6 % (0-2); Eosinophils Absolute Auto 100 /uL (0-450); Eosinophils Percent Auto 1.7 % (2-4); Hematocrit 40.4 % (41-53); Hemoglobin 13.4 g/dL (13.5-17.5); Lymphocytes Absolute Auto 1300 /uL (1100-4500); Lymphocytes Percent Auto 17.8 % (25-40); Mean Corpuscular Hemoglobin 32.5 PG (26-34); Mean Corpuscular Volume 98.3 fL (80-100); Monocytes Absolute Auto 700 /uL (0-900); Monocytes Percent Auto 10.3 % (3-14); Neutrophils Absolute Auto 5100 /uL (1500-7000); Neutrophils Percent Auto 69.6 % (50-75); Platelet Count 214 X10^3/uL (150-400); Red Blood Cell Count 4.11 X10^6/uL (4.5-5.9); Red Cell Distribution Width 13.8 % (11.6-14.8); White Blood Cell Count 7.3 X10^3/uL (4.5-11.0)
--- NOTE | 2018-12-03 10:00 | PC.NURSE ---
Pt is A&Ox3. Abdomen is distended. Pt states that he has not had a bm since last friday night. Surgeon in seeing the pt at this time. He will have a shower this morning and is also visiting with his .
--- NOTE | 2018-12-03 10:25 | PM.PN.1 ---
Subjective Date Patient Seen: 12/03/18 Time Patient Seen: 10:33 Interval history: Patient feeling improved today Has not had a bowel movement in 5 days this is his main complaint Abdominal pain he estimates is gone down from a for on admission to 1 currently Feeling bloated Exam Vital Signs (past 8 hours): - 12/03/18 04:15 12/03/18 07:45 Temperature 98.3 F 98.7 F Pulse Rate 47 L 63 Respiratory Rate 17 14 Blood Pressure 124/83 126/72 Pulse Oximetry 99 100 Oxygen Delivery Method Room Air Oxygen Flow Rate 0 Narrative Exam Narrative: Well-appearing man in no acute distress Breathing comfortably on room air Regular strong radial pulse Abdomen is minimally distended, soft, remarkably with very little tenderness in the left lower quadrant Periphery warm Objective Labs Result Diagrams: 12/03/18 08:30 12/02/18 14:15 Labs: Laboratory Results - last 24 hr 12/02/18 12/02/18 12/02/18 14:15 14:15 14:15 WBC 12.9 H RBC 4.45 L Hgb 14.4 Hct 43.5 MCV 97.8 MCH 32.4 MCHC 33.2 RDW 13.8 Plt Count 233 Neut % (Auto) 77.6 H Lymph % (Auto) 11.3 L [place] % (Auto) 10.3 Eos % (Auto) 0.4 L Baso % (Auto) 0.4 Neut # (Auto) 52281 H Lymph # (Auto) 1500 [place] # (Auto) 1300 H Eos # (Auto) 100 Baso # (Auto) 100 Sodium 138 Potassium 3.7 Chloride 100 Carbon Dioxide 26 BUN 12 Creatinine 0.70 Estimated GFR > 60.0 BUN/Creatinine Ratio 17.1 Glucose 112 H Lactate 1.0 Calcium 9.0 Total Bilirubin 1.4 H AST 36 ALT 35 Alkaline Phosphatase 70 Total Protein 8.6 H Albumin 4.5 Globulin 4.1 Albumin/Globulin Ratio 1.1 Lipase 88 Procalcitonin Urine RBC Urine WBC Amorphous Sediment Urine Bacteria Ur Culture Indicated? 12/02/18 12/02/18 12/03/18 14:18 14:25 08:30 WBC 7.3 RBC 4.11 L Hgb 13.4 L Hct 40.4 L MCV 98.3 MCH 32.5 MCHC 33.0 RDW 13.8 Plt Count 214 Neut % (Auto) 69.6 Lymph % (Auto) 17.8 L [place] % (Auto) 10.3 Eos % (Auto) 1.7 L Baso % (Auto) 0.6 Neut # (Auto) 5100 Lymph # (Auto) 1300 [place] # (Auto) 700 Eos # (Auto) 100 Baso # (Auto) 0 Sodium Potassium Chloride Carbon Dioxide BUN Creatinine Estimated GFR BUN/Creatinine Ratio Glucose Lactate Calcium Total Bilirubin AST ALT Alkaline Phosphatase Total Protein Albumin Globulin Albumin/Globulin Ratio Lipase Procalcitonin 0.07 Urine RBC 1-5/hpf Urine WBC None seen Amorphous Sediment 1+ Urine Bacteria None seen Ur Culture Indicated? Cult not indicated Assessment & Plan Assessment & Plan narrative: 58-year-old man presents with diverticular abscess in the setting of acute diverticulitis -clinically improving, with less pain, improved exam, and white blood cell count from 12.9-7.3 this morning. Given that he has a 4.5 cm abscess -I would like him to remain on IV antibiotics for an additional day to ensure is resolving. Radiology did not feel comfortable yesterday draining his abscess. Plan: Continue levofloxacin/metronidazole Probiotic Multimodal pain control Ambulate today TKo fluid Continue clear liquid diet Enoxaparin for DVT prophylaxis Quality VTE Deep Vein Thrombosis/Pulmonary Embolism Present on Admission: No
--- NOTE | 2018-12-03 10:36 | P.PN_ITS ---
Subjective Date Patient Seen: 12/03/18 Time Patient Seen: 10:33 Interval history: Patient feeling improved today Has not had a bowel movement in 5 days this is his main complaint Abdominal pain he estimates is gone down from a for on admission to 1 currently Feeling bloated Exam Vital Signs (past 8 hours): - 12/03/18 04:15 12/03/18 07:45 Temperature 98.3 F 98.7 F Pulse Rate 47 L 63 Respiratory Rate 17 14 Blood Pressure 124/83 126/72 Pulse Oximetry 99 100 Oxygen Delivery Method Room Air Oxygen Flow Rate 0 Narrative Exam Narrative: Well-appearing man in no acute distress Breathing comfortably on room air Regular strong radial pulse Abdomen is minimally distended, soft, remarkably with very little tenderness in the left lower quadrant Periphery warm Objective Labs Result Diagrams: 12/03/18 08:30 12/02/18 14:15 Labs: Laboratory Results - last 24 hr 12/02/18 12/02/18 12/02/18 14:15 14:15 14:15 WBC 12.9 H RBC 4.45 L Hgb 14.4 Hct 43.5 MCV 97.8 MCH 32.4 MCHC 33.2 RDW 13.8 Plt Count 233 Neut % (Auto) 77.6 H Lymph % (Auto) 11.3 L [place] % (Auto) 10.3 Eos % (Auto) 0.4 L Baso % (Auto) 0.4 Neut # (Auto) 24010 H Lymph # (Auto) 1500 [place] # (Auto) 1300 H Eos # (Auto) 100 Baso # (Auto) 100 Sodium 138 Potassium 3.7 Chloride 100 Carbon Dioxide 26 BUN 12 Creatinine 0.70 Estimated GFR > 60.0 BUN/Creatinine Ratio 17.1 Glucose 112 H Lactate 1.0 Calcium 9.0 Total Bilirubin 1.4 H AST 36 ALT 35 Alkaline Phosphatase 70 Total Protein 8.6 H Albumin 4.5 Globulin 4.1 Albumin/Globulin Ratio 1.1 Lipase 88 Procalcitonin Urine RBC Urine WBC Amorphous Sediment Urine Bacteria Ur Culture Indicated? 12/02/18 12/02/18 12/03/18 14:18 14:25 08:30 WBC 7.3 RBC 4.11 L Hgb 13.4 L Hct 40.4 L MCV 98.3 MCH 32.5 MCHC 33.0 RDW 13.8 Plt Count 214 Neut % (Auto) 69.6 Lymph % (Auto) 17.8 L [place] % (Auto) 10.3 Eos % (Auto) 1.7 L Baso % (Auto) 0.6 Neut # (Auto) 5100 Lymph # (Auto) 1300 [place] # (Auto) 700 Eos # (Auto) 100 Baso # (Auto) 0 Sodium Potassium Chloride Carbon Dioxide BUN Creatinine Estimated GFR BUN/Creatinine Ratio Glucose Lactate Calcium Total Bilirubin AST ALT Alkaline Phosphatase Total Protein Albumin Globulin Albumin/Globulin Ratio Lipase Procalcitonin 0.07 Urine RBC 1-5/hpf Urine WBC None seen Amorphous Sediment 1+ Urine Bacteria None seen Ur Culture Indicated? Cult not indicated Assessment & Plan Assessment & Plan narrative: 58-year-old man presents with diverticular abscess in the setting of acute diverticulitis -clinically improving, with less pain, improved exam, and white blood cell count from 12.9-7.3 this morning. Given that he has a 4.5 cm abscess -I would like him to remain on IV antibiotics for an additional day to ensure is resolving. Radiology did not feel comfortable yesterday draining his abscess. Plan: Continue levofloxacin/metronidazole Probiotic Multimodal pain control Ambulate today TKo fluid Continue clear liquid diet Enoxaparin for DVT prophylaxis Quality VTE Deep Vein Thrombosis/Pulmonary Embolism Present on Admission: No
[2018-12-03] MEDS: ENOXAPARIN 40 MG/0.4 ML SYRINGE SUBCUT (14:35)
[2018-12-03] MEDS: ACETAMINOPHEN 325 MG TABLET 650 MG PO (14:36)
[2018-12-03] MEDS: DOCUSATE 250 MG CAPSULE PO (14:36)
[2018-12-03] MEDS: LACTOBACILLUS ACIDOPHILUS TABLET 1 EACH PO ×2 (14:36→18:08)
--- NOTE | 2018-12-03 15:52 | CM.DANOTE ---
Discharge Planning/Care Management DCP: assessment: case received, EMR reviewed. Discussed POC in Team Rounds today. Pt is a 58 year old male who admitted yesterday afternoon after having had an initial clinic visit AFM: Sandy Melvin: with a d/c home and then a call back later and recommendation that pt present to the ER. Admitted to General Surgeon: Dr. Chilel: dx diverticulitis with contained abscess and medical management for same. Payer: [facility]. Rounding surgeon saw pt today, noted his improvement and POC continues with a possible d/c home tomorrow. Pt's significant other, Maria Luz, has been at the bedside. P: check in with pt tomorrow for introduction of self and role and prn assist with any d/c issues that may arise. CM Discharge Assessment Start: 12/03/18 15:51 Freq: Status: Active Protocol: Document 12/03/18 15:51 ITV (Rec: 12/03/18 15:52 ITV [id number]) Discharge Planning Assessment Advance Directives? No History Provided By Medical Record Household Members significant other Independent with ADL's Yes Is patient alert and oriented? Yes Review Status In Process
[2018-12-03] MEDS: levoFLOXacin 750 MG/150 ML PIGGYBACK 100 MG IV (16:19)
[2018-12-03] MEDS: diphenhydrAMINE 25 MG TABLET 50 MG PO (22:07)
--- NOTE | 2018-12-03 23:47 | PC.NURSE ---
Addendum entered by Hailey Torres R.N. 12/04/18 06:06: Slept at intervals. Up independently in room. Taking good po intake. Continues to deny pain and declines scheduled Tylenol. Original Note: Patient is alert and oriented. Breath sounds diminished but CTA with RA sat of 99%. HRR. Denies nausea. Abdomen slightly distended bloated per patient, with active BT and passing flatus; has not had BM recorded since 11/30. Denies abdominal pain/tenderness. Denies dysuria, frequency or urgency. Independent with mobility. Refused SCD's. Fall risk score is low.
[2018-12-04 04:14] VITALS: BP 138/82; PULSE 55; RESP 16; TEMP 36.9; O2SAT 99
[2018-12-04] MEDS: metroNIDAZOLE 500 MG/100 ML PIGGYBACK 100 MG IV (05:59)
[2018-12-04 06:07] LABS: Blood Urea Nitrogen 7 mg/dL (9-20); Calcium 8.7 mg/dL (8.4-10.2); Carbon Dioxide 27 mmol/L (22-32); Chloride 107 mmol/L (98-107); Estimated Glomerular Filt Rate > 60.0 mL/min (>60); Glucose 95 mg/dL (70-100); HEMOLYSIS < 15 (0-50); Magnesium 2.1 mg/dL (1.6-2.3); Potassium 3.9 mmol/L (3.4-5.1); Sodium 141 mmol/L (137-145)
[2018-12-04 08:00] VITALS: BP 138/100; PULSE 54; RESP 18; TEMP 36.4; O2SAT 99
[2018-12-04 08:27] VITALS: O2SAT 98
[2018-12-04] MEDS: ENOXAPARIN 40 MG/0.4 ML SYRINGE SUBCUT (08:43)
[2018-12-04] MEDS: LACTOBACILLUS ACIDOPHILUS TABLET 1 EACH PO ×2 (08:43→11:58)
[2018-12-04] MEDS: DOCUSATE 250 MG CAPSULE PO (08:43)
--- NOTE | 2018-12-04 10:30 | PC.NURSE ---
Addendum entered by Sada Freitas R.N. 12/04/18 14:37: DC - after abx completed, iv removed, when spouse returned w/clothing, pt dressed, belongings gathered, including laptop, chargers, clothing, sandles, briefcase, reviewed dc instructions with pt and spouse, paperwork provided, escorted ambulatory to spouse's car. Addendum entered by Sada Freitas R.N. 12/04/18 11:32: DC - md gave scripts directly to pt. Addendum entered by Sada Freitas R.N. 12/04/18 11:26: IV ABX - per discussion with , admin iv levaquin earlier than sched time so pt may dc home. Original Note: AM NOTE - pt is alert, states no abd discomfort now, denies nausea, does feel mildly bloated, clementine clear liq, +bt, states had small bm earlier am, hr 72, ra 98%.
--- NOTE | 2018-12-04 10:59 | P.DS_ITS ---
History of Present Illness Date Patient Seen: 12/04/18 Time Patient Seen: 10:55 Chief complaint: abdominal pain Narrative: 58-year-old healthy man presented with 1st episode ever acute divert iculitis with diverticular abscess in greatest dimension measuring 4.5 cm. Largely air-containing between sigmoid colon and inferior lateral pelvic sidewall. Radiology did not feel comfortable draining. He was started on IV levofloxacin and metronidazole with rapid resolution of his leukocytosis and symptoms. By hospital day 3 he was without pain and very minimal tenderness on exam. He was discharged home on a total of 14 days of antibiotics. Discharge Providers Date of admission: 12/02/18 15:35 Discharge Date: 12/04/18 Discharge provider: Bertrand Mendez Summary Discharge Diagnosis: Acute diverticulitis Diverticular abscess Hospital Course: As above Status at Discharge Cognitive/behavioral status at discharge: oriented Functional status at discharge: independent ambulation Overall status at discharge: patient is progressing back to baseline Time Spent with Patient Greater than 30 minutes (Spent patient counseling as to the natural history of diverticulitis and next management steps) Exam Vital Signs (past 8 hours): - 12/04/18 04:14 12/04/18 08:00 12/04/18 08:27 Temperature 98.4 F 97.6 F Pulse Rate 55 L 54 L Respiratory Rate 16 18 Blood Pressure 138/82 138/100 H Pulse Oximetry 99 99 98 Oxygen Delivery Method Room Air Oxygen Flow Rate 0 Narrative Exam Narrative: Well-appearing man in no acute distress Breathing comfortably on room air Regular rate and rhythm Abdomen mildly distended, generally nontender however with deep palpation left lower quadrant some tenderness elicited. No peritonitis no reflexive guarding Periphery warm well perfused Objective Labs Result Diagrams: 12/03/18 08:30 12/04/18 05:45 Labs: Laboratory Results - last 24 hr 12/04/18 05:45 Sodium 141 Potassium 3.9 Chloride 107 Carbon Dioxide 27 BUN 7 L Creatinine 0.70 Estimated GFR > 60.0 BUN/Creatinine Ratio 10.0 Glucose 95 Calcium 8.7 Magnesium 2.1 Discharge Plan Discharge Plan Patient Disposition: Home Discharge Med Rec/Prescriptions Prescriptions: New Bacid (L. acidophilus) 1 billion cell- 250 mg Tablet 1 ea PO TIDWM Qty: 90 RF: 2 levofloxacin 750 mg tablet 750 mg PO DAILY Qty: 11 RF: 0 metronidazole 500 mg tablet 500 mg PO TID Qty: 33 RF: 0 Follow up/Referrals: Bertrand Mendez MD [Physician] - (call for follow up appt in 1 week to 10 days) Provider Discharge Instructions Diet: Diet as Tolerated Diet comment: easy to digest foods until your intestine feels ready Activity: No tendon straining activity for 1 month. All other activity OK. Take miralax - titrate dose to have at least one soft BM each day Skin/Wound/Dressing Care Report to your healthcare provider any signs of infection, such as:: chills, fever and increased pain Visit Report/Discharge Packet Instructions: Diverticulitis Discharge Data Attending Provider: Derik Chilel Admit Date/Time: 12/02/18 15:35 Quality VTE Deep Vein Thrombosis/Pulmonary Embolism Present on Admission: No
[2018-12-04] MEDS: levoFLOXacin 750 MG/150 ML PIGGYBACK 100 MG IV (11:23)
[2018-12-04 12:00] VITALS: BP 126/87; PULSE 54; RESP 17; TEMP 36.7; O2SAT 100
--- NOTE | 2018-12-04 14:32 | CM.DPC ---
DCP: continued: EMR reviewed and d/c to home order noted by Dr. Mendez. Clinic follow with [facility] was planned 7-10 days. Went to check in with pt. SONA Tomlin confirms pt left for home after receiving last dose of IV antibiotics and with plan for oral antibiotics for a few more days. No concerns re the d/c for today were identified.
== END 2018-12-04 14:38 | disposition home or self-care (01) | DRG 392 ==
LOC: ED 15:34 → AC 15:36
PROVIDERS: Surgery; Admitting Provider Surgery; Emergency Provider Internal Medicine; Visit Provider Surgery
DX: K57.20 Diverticulitis of large intestine with perforation and abscess without bleeding (principal)
CPT/HCPCS: 36415; 36591; 74177; 80048; 80053; 81003; 81015; 83605; 83690; 83735; 84145; 85025; 87040; 93005; 94762; 96365; 96366; 96375; 99221; 99232; 99238; 99283; 99285; J1170; J1650; J1885; J1956; J2405; Q9967